=== PATIENT | female | born 1970 ===

== ENCOUNTER 2018-07-04 08:49 | Observation (INO) ==
[~2018-07-04 08:49] MED LIST: LIDOCAINE MPF 2% - 5 ML (20 MG/1 ML) ONE; LIDOCAINE W/ SODIUM BICARB 0.5 ML SYR ONE; LIDOCAINE W/ SODIUM BICARB 0.5 ML SYR SUBD ONE; Lactated Ringers 2,000 ML PRIMARY IV ONE; MIDAZOLAM HCL 2 MG/2 ML VIAL ONE; Nasal Sanitizer POPSWAB ampule 3 AMP (Nozin) PREOP DOSE ENOS SCH; PROPOFOL 10 MG/1 ML (200 MG/20 ML) VIAL IV ONE; ROCURONIUM 10 MG/1 ML - 5 ML VIAL IVP ONE; Sodium Chloride 0.9% 100 ML IV ONE; fentaNYL Inj 250 MCG/5 ML VIAL ONE
[2018-07-04] MEDS: Lactated Ringers 1,000 ML PRIMARY IV SCH ×3 (09:03→16:45)
[2018-07-04 09:10] LABS: BILIRUBIN,URINE NEGATIVE (NEG); CLARITY,URINE CLEAR (CLEAR); COLOR,URINE YELLOW (Y); GLUCOSE, URINE (UA) NEGATIVE (NEG); OCCULT BLOOD,URINE NEGATIVE (NEG); PH,URINE 7.5 (5.0-8.5); PROTEIN,URINE NEGATIVE (NEG); UROBILINOGEN,URINE 0.2 EU/dL (0.2)
[2018-07-04 09:11] LABS: URINE SAMPLE TYPE CLEAN CATCH URINE
[2018-07-04 09:12] LABS: URINE SPECIFIC GRAVITY - MAN 1.015
[2018-07-04] MEDS ORDERED: LIDOCAINE HCL 2 % 10 ML JELLY URO-JECT TOPICAL ONE (10:11)
[2018-07-04] MEDS ORDERED: BUPIVACAINE 0.5% W/EPI MPF -30 ML VIAL IV ONE (10:11)
[2018-07-04] MEDS: CefOXitin Inj 2 GM in Sodium Chloride 0.9% 100 ML IV ONE ×2 (10:25→21:15)
[2018-07-04] MEDS ORDERED: HYDROmorphone 2 MG/1 ML ONE (10:37)
[2018-07-04] MEDS ORDERED: KETAMINE 100 MG/1 ML - 5 ML ONE (10:37)
[2018-07-04] MEDS ORDERED: ONDANSETRON 4 MG/2 ML VIAL ONE (10:37)
[2018-07-04] MEDS ORDERED: KETOROLAC 30 MG/1 ML VIAL ONE (10:37)
[2018-07-04] MEDS ORDERED: Lactated Ringers 1,000 ML PRIMARY IV ONE ×2 (11:00→16:50)
[2018-07-04] MEDS ORDERED: Opium-Belladonna 30-16.2mg 1 EACH SUPP.RECT RECTAL ONE ×2 (11:17→11:20)
[2018-07-04] MEDS ORDERED: LIDOCAINE HCL 2 % 10 ML JELLY URO-JECT TOPICAL PRN (11:40)
[2018-07-04] MEDS ORDERED: Ondansetron ODT Tab 8 MG TAB PO PRN (11:40)
--- NOTE | 2018-07-04 11:43 | OB.OP.NOTE ---
Operative Report Surgeon: Dr. Lebron Senior Marketing Analyst: Danny Montgomery MD Anesthesia Type: General Anesthesia Provider: Tomás Herrera CRNA Surgery Date: 07/04/18 Preoperative Diagnosis: MMR/Dysmenorrhea Postoperative Diagnosis: Same Procedure: da Adolfo Hysterectomy/BSO/Cystoscopy Estimated Blood Loss (mL): 40 Fluids: 2000 ml Complications: None Identified Findings at Surgery: Normal size uterus. Normal tubes and ovaries. No visible evidence of bowel, bladder, or ureter injury. At cysto, both ureters ejected urine and the bladder was intact. Indications for the Procedure: MMR/Dysmenorrhea Description of Procedure: See dictated operative report. Plan: Routine post op care and discharge to home.
[2018-07-04] MEDS: oxyCODONE-ACETAMINOPHEN 5-325 TAB PO PRN ×2 (12:56→16:42)
[2018-07-04] MEDS ORDERED: oxyCODONE-ACETAMINOPHEN 5-325 TAB PO ONE ×2 (13:00→16:45)
--- NOTE | 2018-07-04 15:08 | CRNA.PROGR ---
Anesthesia Recovery Phase I - Post Anesthesia Evaluation Patient's Condition on Arrival in Phase I: Stable Pain Level: 0
--- NOTE | 2018-07-04 15:08 | CRNA.PROGR ---
Anesthesia Time - Procedure/Recovery Time Start Date: 07/04/18 End Date: 07/04/18 Anesthesia : Time In: 10:16 Anesthesia : Time Out: 11:58 Anesthesia : Total Time: 102 - Total Anesthesia Time Total Anesthesia Time (minutes): 102 - Other Weight: 60.419 kg Height: 5 ft 2 in Body Mass Index (BMI): 24.3 Physical Status: P2
[2018-07-04] MEDS: KETOROLAC 15 MG/1 ML VIAL IVP SCH ×2 (19:02→22:57)
[2018-07-04] MEDS ORDERED: LIDOCAINE MPF 2% - 5 ML (20 MG/1 ML) ONE (20:24)
[2018-07-04] MEDS ORDERED: MIDAZOLAM HCL 2 MG/2 ML VIAL ONE (20:24)
[2018-07-04] MEDS ORDERED: PROPOFOL 10 MG/1 ML (200 MG/20 ML) VIAL IV ONE (20:24)
[2018-07-04] MEDS ORDERED: fentaNYL Inj 250 MCG/5 ML VIAL ONE (20:24)
[2018-07-04] MEDS ORDERED: DOCUSATE 100 MG CAPSULE PO SCH (21:00)
[2018-07-04] MEDS ORDERED: Sodium Chloride 0.9% 100 ML IV ONE (21:05)
[2018-07-04] MEDS ORDERED: HALOPERIDOL LACTATE 5 MG/1 ML AMPULE ONE (21:06)
--- NOTE | 2018-07-04 21:50 | OB.OP.NOTE ---
Operative Report Surgeon: Dr. Lebron Hydraulics Engineer: Danny Montgomery MD Anesthesia Type: General Anesthesia Provider: Tomás Herrera CRNA Surgery Date: 07/04/18 Preoperative Diagnosis: Post op vaginal bleeding Postoperative Diagnosis: Vaginal side wall laceration, right side Procedure: EUA, Repair of vaginal side wall laceration. Estimated Blood Loss (mL): 0 Fluids: 700 ml Complications: None Findings at Surgery: Superficial mucosal laceration on the right vaginal sidewall near the vaginal apex, approximately 2.5 cm in length. Not actively bleeding at time of surgery. The vaginal cuff was intact and hemostatic, with no visible or palpable evidence of cuff hematoma. Indications for the Procedure: Vaginal bleeding post hysterectomy with passage of clots. Description of Procedure: The patient was taken to the operating room and placed supine where general laryngeal mask anesthesia was administered. She was then placed in lithotomy position in [facility] stirrups. She was prepped and draped in the normal sterile fashion and her bladder was emptied of urine with a straight catheter. Right angle retractors were used to obtain exposure of the vaginal cuff. Inspection of the vaginal cuff revealed good hemostasis and an intact cuff. A laceration was noted of the vaginal mucosa along the right vaginal sidewall near the vaginal apex. This laceration was approximate 2.5 cm in length and was not actively bleeding, although there was a small amount of oozing from the most apical portion of the laceration. The laceration was closed with a running 0 Vicryl suture without difficulty. The entire vaginal vault was inspected. No other lacerations were noted. The vagina was then irrigated. The vaginal vault was hemostatic at the conclusion of the procedure. There were no complications at surgery. The patient left to recovery in good condition. Plan: Overnight observation with discharge in the morning.
--- NOTE | 2018-07-04 21:51 | CRNA.PROGR ---
Anesthesia Time - Procedure/Recovery Time Start Date: 07/04/18 End Date: 07/04/18 Anesthesia : Time In: 21:09 Anesthesia : Time Out: 21:42 Anesthesia : Total Time: 33 - Total Anesthesia Time Total Anesthesia Time (minutes): 33 - Other Weight: 60.328 kg Height: 5 ft 2 in Body Mass Index (BMI): 24.3 Physical Status: P2 Anesthesia Type: General Anesthesia : LMA
--- NOTE | 2018-07-04 21:52 | CRNA.PROGR ---
Post Anesthesia Phase II - Post Anesthesia Phase II Patient Stable and Discharged To: Phase II Care Assumed By Surgeon: Jesus Lebron MD Temperature: 97.2 F Pulse Rate: 69 Respiratory Rate: 18 Blood Pressure: 133/77 Pulse Ox: 97 Total Mihaela Score at Discharge: 9 Post Anesthesia Discharge Criteria Met: Yes
[2018-07-05] MEDS: KETOROLAC 15 MG/1 ML VIAL IVP SCH (00:34)
[2018-07-05] MEDS: IBUPROFEN 800 MG TABLET PO PRN ×2 (00:35→08:42)
[2018-07-05] MEDS: Lactated Ringers 1,000 ML PRIMARY IV SCH (04:33)
--- NOTE | 2018-07-05 07:29 | DCSUMMARY ---
Hospitalization Summary Admit Date: 07/04/18 Discharge Date: 07/05/18 Primary Diagnosis:: MMR/Dysmenorrhea Hospital Course: The patient had an uncomplicated robotic hysterectomy/BSO. She was admitted for overnight observation secondary to greater than normal vaginal bleeding in PACU. She was taken back to the OR for EUA and repair of what turned out to be a small vaginal side wall laceration, presumably from the weighted speculum used in the placement of the uterine manipulator for the hysterectomy. She was doing well on POD 1 and was discharged to home in good condition. F/u 2 weeks. Exam - Vitals Vital Signs: Vital Signs Temperature 96.9 F Temperature Source Temporal Artery Scan Pulse Rate [Pulse Oximeter] 63 Pulse Rate 68 Respiratory Rate 18 Blood Pressure [Right Arm] 113/65 Blood Pressure 105/61 Pulse Ox 92 Oxygen Flow Rate 2 Oxygen Delivery Method Room Air Height 5 ft 2 in Weight 133 lb
[2018-07-05 07:30] VITALS: BP 117/75; RESP 16; TEMP 97.1; O2SAT 93
--- NOTE | 2018-07-05 07:30 | PDOC(PROG) ---
Subjective Post Op Day: 1 Pain Management: PO Kaufman Catheter: No Flatus: Yes Diet: Regular Ambulating: Yes Concerns / Additional Information: No vaginal bleeding this AM. Pt. is ready for discharge to home. Assesstment / Plan Assessment / Plan: POD 1, doing well. Discharge to home.
== END 2018-07-05 08:47 | disposition home or self-care (01) ==
LOC: MED/SURG 08:49 → OR 08:49 → MED/SURG 17:14
PROVIDERS: ADMIT Obstetrics & Gynecology; ATTEND Obstetrics & Gynecology